=== PATIENT | male | born 1985 | race Two or more races ===

== ENCOUNTER 2020-11-30 17:36 | Emergency (ER) | payer MEDICAID ==
[~2020-11-30] VITALS: Ht 175.3 cm; Wt 86.0 kg
[2020-11-30 17:38] VITALS: BP 148/87
[2020-11-30] MEDS ORDERED: IBUPROFEN 600MG TABLET PO ONE (20:30)
[2020-11-30] MEDS ORDERED: TETANUS, DIPHTHERIA, PERTUSSIS VAC/PF 0.5ML (>10YR OLD) IM ONE (20:30)
[2020-11-30] MEDS ORDERED: LIDOCAINE HCL/PF 1% 10 MG/ML 5ML VIAL INFIL ONE (20:30)
[2020-11-30] MEDS ORDERED: BACITRACIN ZINC OINT UDPKT TOP ONE (20:30)
== END 2020-11-30 22:16 | disposition home or self-care (01) ==
LOC: ER 17:36
DX: S61.012A Laceration without foreign body of left thumb without damage to nail, initial encounter (principal); W45.8XXA Other foreign body or object entering through skin, initial encounter; Y93.89 Activity, other specified; Y92.89 Other specified places as the place of occurrence of the external cause; Y99.8 Other external cause status
CPT/HCPCS: 12001; 90715; 99282; J3490; Z7610; 99284

== ENCOUNTER 2024-04-12 08:42 | Emergency (ER) | payer MEDICAID, OTHER ==
[~2024-04-12] VITALS: Ht 175.3 cm; Wt 86.0 kg
[2024-04-12 08:47] VITALS: TEMP 37.1; O2SAT 99
[2024-04-12] MEDS: KETOROLAC 30MG/ML VIAL IM ONE (09:37)
[2024-04-12] MEDS: OXYCODONE HCL/ACETAMINOPHEN 5/325MG TABLET PO ONE (09:37)
[2024-04-12 10:22] VITALS: BP 183/53; PULSE 96; RESP 18
[2024-04-12] MEDS: MORPHINE SULFATE 4 MG/ML INJ (FOR IV/IM USE) IV STA (10:22)
[2024-04-12] MEDS: LIDOCAINE 5% PATCH TOP STA (10:27)
[2024-04-12] MEDS ORDERED: LIDO700A30 TP (10:35)
[2024-04-12] MEDS ORDERED: IBUP-2028 PO (10:35)
== END 2024-04-12 10:40 | disposition home or self-care (01) ==
LOC: ER 08:42
DX: M54.50 Low back pain, unspecified (principal); G89.29 Other chronic pain; I10 Essential (primary) hypertension; Z79.1 Long term (current) use of non-steroidal anti-inflammatories (NSAID)
CPT/HCPCS: 99283; 96372; J1885